=== PATIENT | female | born 1955 | race Hispanic/Latino ===

== ENCOUNTER 2020-05-09 09:37 | Outpatient (CLI) | payer MEDICARE ==
[2020-05-09 10:39] LABS: Blood Urea Nitrogen 14 mg/dL (7-17)
--- NOTE | 2020-05-09 12:38 | Cat Scan Report ---
CTA ABDOMEN AND PELVIS WITHOUT AND WITH IV CONTRAST INDICATION: Generalized abdominal pain. TECHNIQUE: Axial CT images were obtained through the abdomen and pelvis before and after after injection of 100 cc Omnipaque 350 IV contrast. 3 plane MIP reconstructions were produced. All CT scans at this [facility] are performed using CT dose reduction for ALARA by means of automated exposure control. COMPARISON: None available. FINDINGS: Aorta: No acute abnormality. Renal arteries: No acute abnormality. There is a tiny accessory right renal artery. Celiac artery: No acute abnormality. Superior mesenteric artery: No acute abnormality. Inferior mesenteric artery: No acute abnormality. Right iliac arteries: No acute abnormality. Left iliac arteries: No acute abnormality. Additional Findings: Bilateral iliac vein stents are widely patent. IVC is unremarkable. There is mild hepatic steatosis. No acute solid organ abnormality is seen. There is no free fluid or adenopathy. Within the anterior abdominal wall, there is a circumscribed 13.4 x 14.2 x 4.8 cm collection which co ntains a few calcifications within it. This is immediately superficial to the rectus musculature. Skeletal Structures: No acute osseous abnormality. IMPRESSION: 1. No acute findings. 2. Bilateral iliac vein stents are widely patent. 3. Circumscribed fluid collection anterior abdominal wall deep subcutaneous fat, measurements as abov e. This contains internal calcifications and may be a chronic hematoma. Signer Name: Vinh Wu MD Signed: 05/09/2020 12:33 PM Workstation Name: [id number]
== END 2020-05-09 09:38 | disposition home or self-care (01) ==
LOC: CT 09:37
PROVIDERS: ATTEND Radiology Diagnostic Radiology
DX: I70.8 Atherosclerosis of other arteries (principal); R10.84 Generalized abdominal pain; K76.0 Fatty (change of) liver, not elsewhere classified
CPT/HCPCS: 36415; 74174; 82565; 84520; Q9967